=== PATIENT | female | born 1940 | race Caucasian/White ===

== ENCOUNTER 2020-09-09 06:03 | Day surgery (SDC) | payer OTHER ==
[2020-09-09 11:44] VITALS: BMI 23.4
[2020-09-09] MEDS ORDERED: oxyCODONE HCL 5 MG TABLET PO PRN (14:31)
[2020-09-09] MEDS ORDERED: ONDANSETRON 4 MG/2 ML VIAL IVPUSH PRN (14:31)
[2020-09-09] MEDS ORDERED: MIDAZOLAM HCL 2 MG/2 ML SINGLE DOSE VIAL ONE (14:37)
[2020-09-09] MEDS ORDERED: LIDOCAINE HCL 1%, 10 MG/ML (20ML VIAL) ONE (15:42)
[2020-09-09] MEDS ORDERED: ceFAZolin SODIUM 1 GM VIAL IVPB ONE (15:52)
[2020-09-09] MEDS ORDERED: LIDOCAINE HCL 1%, 10 MG/ML (20ML VIAL) INF ONE ×2 (15:57)
[2020-09-09] MEDS ORDERED: ACETAMINOPHEN INJECTION 100 ML IVPB ONE (16:31)
[2020-09-09 17:54] VITALS: PULSE 82; TEMP 97
[2020-09-09 18:26] VITALS: BP 130/70
== END 2020-09-09 18:30 | disposition home or self-care (01) ==
LOC: JASU-SURG 06:03
PROVIDERS: ATTEND Surgery Vascular Surgery
PROC: 03BS0ZX Excision of Right Temporal Artery, Open Approach, Diagnostic (ICD-10-PCS; principal; 2020-09-09 12:30)
DX: M31.6 Other giant cell arteritis (principal)
CPT/HCPCS: 88305-TC; 94760; J0131